=== PATIENT | male | born 1980 | race Hispanic/Latino ===

== ENCOUNTER 2025-01-18 15:17 | Emergency (ER) | payer OTHER ==
[~2025-01-18] VITALS: Ht 177.8 cm; Wt 79.8 kg
[2025-01-18] MEDS ORDERED: DOXYCYCLINE HY100 MG PO (16:45)
[2025-01-18] MEDS ORDERED: HYDROCODONE/ACETA 5/325 TAB PO ONE (17:00)
[2025-01-18 17:07] VITALS: BP 135/88
== END 2025-01-18 17:09 | disposition other institution, planned readmission (95) ==
LOC: ED 15:17
DX: L73.2 Hidradenitis suppurativa (principal)
CPT/HCPCS: 99283